=== PATIENT | female | born 1950 | race Caucasian/White ===

== ENCOUNTER 2017-06-01 11:42 | Emergency (ER) | payer OTHER ==
[~2017-06-01] VITALS: Ht 154.9 cm; Wt 76.0 kg
[2017-06-01 12:53] LABS: CALCIUM 8.9 mg/dL (8.5-10.1); CARBON DIOXIDE 30.9 mmol/L (21-32); CHLORIDE SERUM 106 mmol/L (98-107); CREATININE SERUM 0.8 mg/dL (0.6-1.0); GFR1 > 60 mL/min; GLUCOSE SERUM 93 mg/dL (74-106); POTASSIUM SERUM 3.7 mmol/L (3.5-5.1); SODIUM SERUM 143 mmol/L (136-145)
[2017-06-01 12:57] LABS: BASOPHIL % 0.6 % (0-2); PLATELET COUNT 180 x10^3mcL (130-400); RED CELL DISTRIBUTION WIDTH 12.7 % (11.5-14.5)
[2017-06-01 13:01] LABS: ALBUMIN 3.6 g/dL (3.4-5.0); ALKALINE PHOSPHATASE 62 U/L (46-116); ALT/SGPT 23 U/L (14-59); AST/SGOT 18 U/L (15-37); BILIRUBIN TOTAL 0.6 mg/dL (0.20-1.00); CHOLESTEROL 143 mg/dL (<200); CHOLESTEROL/HDL RATIO 2.5; HDL CHOLESTEROL 58 mg/dL (40-60); TRIGLYCERIDES 109 mg/dL (<150)
[2017-06-01 13:06] LABS: FREE T4 1.19 ng/dL (0.76-1.46); FREE THYROXINE INDEX 2.8 ug/dL (1.4-4.5); T4(THYROXINE) 7.6 ug/dL (4.7-13.3)
[2017-06-01 13:19] LABS: T3 TOTAL 0.97 ng/mL
[2017-06-01 13:31] VITALS: BP 136/90
== END 2017-06-01 13:31 | disposition home or self-care (01) ==
LOC: ED 11:42
PROVIDERS: Specialist
DX: I10 Essential (primary) hypertension (principal)
CPT/HCPCS: 36415; 83880; 84439; Q0092

== ENCOUNTER 2017-06-10 02:30 | Emergency (ER) | payer OTHER ==
[2017-06-10 06:29] VITALS: BP 151/73
== END 2017-06-10 06:29 | disposition home or self-care (01) ==
LOC: ED 02:30
DX: H60.93 Unspecified otitis externa, bilateral (principal); I10 Essential (primary) hypertension

== ENCOUNTER 2018-01-05 12:34 | Emergency (ER) | payer OTHER ==
[~2018-01-05] VITALS: Ht 154.9 cm; Wt 77.1 kg
[2018-01-05 12:42] VITALS: Ht 154.9 cm; Wt 77.1 kg
[2018-01-05 14:39] VITALS: BP 130/94
== END 2018-01-05 14:39 | disposition home or self-care (01) ==
LOC: ED 12:34
DX: S90.31XA Contusion of right foot, initial encounter (principal); I10 Essential (primary) hypertension; W22.8XXA Striking against or struck by other objects, initial encounter; Y93.89 Activity, other specified; Y92.89 Other specified places as the place of occurrence of the external cause; Y99.8 Other external cause status

== ENCOUNTER 2018-02-01 10:50 | Emergency (ER) | payer OTHER ==
[~2018-02-01] VITALS: Ht 152.4 cm; Wt 72.6 kg
[2018-02-01 11:00] VITALS: Ht 152.4 cm; Wt 72.6 kg
[2018-02-01 11:44] LABS: BASOPHIL % 0.6 % (0-2); PLATELET COUNT 163 x10^3mcL (130-400); RED CELL DISTRIBUTION WIDTH 13.1 % (11.5-14.5)
[2018-02-01 11:58] LABS: CALCIUM 8.6 mg/dL (8.5-10.1); CHLORIDE SERUM 106 mmol/L (98-107); CREATININE SERUM 0.8 mg/dL (0.6-1.0); GFR1 > 60 mL/min; GLUCOSE SERUM 110 mg/dL (74-106); POTASSIUM SERUM 3.9 mmol/L (3.5-5.1); SODIUM SERUM 142 mmol/L (136-145)
[2018-02-01 11:59] LABS: UA SPECIFIC GRAVITY 1.015 (1.005-1.035); microscopic required? YES; urine erythrocyte TRACE (NEGATIVE)
[2018-02-01 12:02] LABS: ALBUMIN 3.4 g/dL (3.4-5.0); ALKALINE PHOSPHATASE 66 U/L (46-116); ALT/SGPT 46 U/L (14-59); AST/SGOT 49 U/L (15-37); BILIRUBIN TOTAL 0.54 mg/dL (0.20-1.00); TOTAL PROTEIN, SERUM 6.9 g/dL (6.4-8.2)
[2018-02-01 13:30] VITALS: BP 130/88
== END 2018-02-01 13:20 | disposition home or self-care (01) ==
LOC: ED 10:50
PROVIDERS: Emergency Medicine
DX: R53.1 Weakness (principal); R53.83 Other fatigue; I10 Essential (primary) hypertension
CPT/HCPCS: 36415; 83880; J7030